=== PATIENT | male | born 1990 | race Caucasian/White ===

== ENCOUNTER 2020-06-01 10:43 | Emergency (ER) | payer MEDICAID, OTHER ==
[~2020-06-01] VITALS: Ht 193 cm; Wt 99.8 kg
--- NOTE | 2020-06-01 11:13 | NUR ---
[email or web address], medical screening exam in progress
[2020-06-01] MEDS ORDERED: DOCU250C14 PO (11:23)
[2020-06-01] MEDS ORDERED: LIDO30CR20 TP (11:23)
[2020-06-01] MEDS ORDERED: HYDR28.316 RC (11:23)
--- NOTE | 2020-06-01 11:38 | NUR ---
Patient discharged to home in stable condition with brisk steady gait. Written and verbal after care instructions given. Patient verbalizes understanding & compliance of instructions. Stressed follow up with your primary doctor and GI specialist or return to ER for worsening s/s.
== END 2020-06-01 11:38 | disposition home or self-care (01) ==
LOC: ER 10:43
DX: K64.4 Residual hemorrhoidal skin tags (principal)
CPT/HCPCS: A4663

== ENCOUNTER 2021-02-19 10:45 | Emergency (ER) | payer OTHER ==
[~2021-02-19] VITALS: Ht 193 cm; Wt 99.8 kg
[~2021-02-19 10:45] MED LIST: DOCU250C14 PO; HYDR28.316 RC; LIDO30CR20 TP
[2021-02-19] MEDS ORDERED: IBUPROFEN 600 MG TABLET PO ONE (11:30)
[2021-02-19] MEDS ORDERED: IBUPROFEN 600 MG TABLET ONE (11:36)
--- NOTE | 2021-02-19 11:40 | NUR ---
Patient discharged to home in stable condition. Written and verbal after care instructions given. Patient verbalizes understanding of instructions. Stressed follow up or return to ER for worsening s/s.
== END 2021-02-19 12:18 | disposition home or self-care (01) ==
LOC: ER 10:47
DX: S60.221A Contusion of right hand, initial encounter (principal); W01.198A Fall on same level from slipping, tripping and stumbling with subsequent striking against other object, initial encounter; Y92.89 Other specified places as the place of occurrence of the external cause; Z88.6 Allergy status to analgesic agent
CPT/HCPCS: 73130; A4663

== ENCOUNTER 2021-05-02 18:29 | Emergency (ER) | payer OTHER ==
[~2021-05-02] VITALS: Ht 193 cm; Wt 99.8 kg
--- NOTE | 2021-05-02 18:39 | NUR ---
[email or web address], medical screening exam in progress
[2021-05-02 19:04] LABS: HEMATOCRIT 44.5 % (36.7-47.1); MEAN CORPUSCULAR HEMOGLOBIN 30.5 uug (23.8-33.4); MEAN CORPUSCULAR VOLUME 89.1 fL (73.0-96.2); PLATELET COUNT (AUTO) 213 K/uL (152-348)
--- NOTE | 2021-05-02 19:04 | NUR ---
Patient is now in CT scan. Blood was drawn earlier. Nursing SBAR to [facility] accordingly.
[2021-05-02] MEDS ORDERED: SWABABLE VALVE TRANSFER SET EA MC ONE (19:07)
[2021-05-02] MEDS ORDERED: IV NORMAL SALINE 250 ML IV ONE (19:07)
[2021-05-02] MEDS ORDERED: IOHEXOL 350 100 ML INFUS..BTL ONE (19:07)
[2021-05-02 19:17] LABS: CREATININE 0.9 mg/dL (0.6-1.3); POTASSIUM 3.7 mmol/L (3.5-5.1)
--- NOTE | 2021-05-02 19:17 | NUR ---
Patient back from CT scan via [facility] accompanied by
[2021-05-02 19:23] LABS: BILIRUBIN,DIRECT 0.3 mg/dL (0.0-0.2); BILIRUBIN,TOTAL 1.2 mg/dL (0.2-1.0); TOTAL PROTEIN, SERUM 7.4 g/dL (6.4-8.2)
--- NOTE | 2021-05-02 20:15 | NUR ---
Patient requested to go home and update his lab workup. Dr Aguirre made aware.
--- NOTE | 2021-05-02 20:53 | NUR ---
Patient discharged to home via private vehicle in stable condition, VSS, NAD. Steady ambulation noted. Written and verbal after care instructions given. Patient verbalizes understanding of instructions. Stressed follow up or return to ER for worsening s/s.
[2021-05-02 21:23] VITALS: BP 139/72
== END 2021-05-02 20:55 | disposition home or self-care (01) ==
LOC: ER 18:32
DX: M54.2 Cervicalgia (principal); R03.0 Elevated blood-pressure reading, without diagnosis of hypertension
CPT/HCPCS: 36415; 70498; 73000; 80048; 80076; 85025; 85730; 99285; Q9967; A4663; J7050

== ENCOUNTER 2021-11-05 09:43 | Emergency (ER) | payer OTHER ==
[~2021-11-05] VITALS: Ht 193 cm; Wt 104.3 kg
[2021-11-05] MEDS ORDERED: LIDOCAINE HCL 1% 20 ML VIAL ONE (09:59)
[2021-11-05] MEDS ORDERED: LIDOCAINE HCL 1% 20 ML VIAL TP ONE (10:00)
[2021-11-05] MEDS ORDERED: NEOMY/BACITRA/POLYMYXIN B OINT UD PACKET TP ONE ×2 (10:00→10:50)
[2021-11-05] MEDS: TDAP DIPH,PERTUSS,TET VAC/PF 0.5 ML DISP.SYRIN IM ONE ×2 (10:33→10:58)
[2021-11-05] MEDS ORDERED: AMOX-430 PO (10:38)
[2021-11-05] MEDS ORDERED: TDAP DIPH,PERTUSS,TET VAC/PF 0.5 ML DISP.SYRIN IM ONE (10:50)
--- NOTE | 2021-11-05 11:07 | NUR ---
put ABx ointment on wound, covered w/Band-aid. Gave pt RX and d/c instructions, pt verbalized understanding.
== END 2021-11-05 11:12 | disposition home or self-care (01) ==
LOC: ER 09:45
DX: S61.412A Laceration without foreign body of left hand, initial encounter (principal); S61.217A Laceration without foreign body of left little finger without damage to nail, initial encounter; Y04.1XXA Assault by human bite, initial encounter; Y04.0XXA Assault by unarmed brawl or fight, initial encounter; Y92.89 Other specified places as the place of occurrence of the external cause
CPT/HCPCS: 99283; 73130; 90715; 90471; 12001; J3490; A4663

== ENCOUNTER 2022-03-22 08:33 | Emergency (ER) | payer OTHER ==
[~2022-03-22] VITALS: Ht 193 cm; Wt 104.3 kg
[~2022-03-22 08:33] MED LIST changes: +AMOX-430 PO
--- NOTE | 2022-03-22 08:56 | NUR ---
[email or web address], medical screening exam in progress
--- NOTE | 2022-03-22 09:02 | NUR ---
Patient discharged to home in stable condition with brisk steady gait. Written and verbal after care instructions given. Patient verbalized understanding and compliance of instructions. Stressed follow up with primary doctor and eye doctor or return to ER for worsening s/s.
== END 2022-03-22 09:03 | disposition home or self-care (01) ==
LOC: ER 08:33
DX: H00.015 Hordeolum externum left lower eyelid (principal)
CPT/HCPCS: A4663

== ENCOUNTER 2023-03-02 17:42 | Emergency (ER) | payer OTHER ==
[~2023-03-02] VITALS: Ht 193 cm; Wt 97.5 kg
[2023-03-02 17:53] VITALS: O2SAT 97
== END 2023-03-02 18:10 | disposition left against medical advice (07) ==
LOC: ER 17:45
DX: E86.0 Dehydration (principal); M54.9 Dorsalgia, unspecified; F41.9 Anxiety disorder, unspecified; Z90.49 Acquired absence of other specified parts of digestive tract; Z88.5 Allergy status to narcotic agent; Z79.2 Long term (current) use of antibiotics; Z79.899 Other long term (current) drug therapy
CPT/HCPCS: A4606; A4663